=== PATIENT | male | born 1955 ===

== ENCOUNTER → 2018-04-25 19:02 | Outpatient (REF) | payer SELFPAY ==
[2018-04-25 19:56] LABS: Prothrombin Time 35.4 SECONDS (10.1-12.7)
== END ==
LOC: LAB 19:02
PROVIDERS: Visit Provider Family Medicine
DX: I48.91 Unspecified atrial fibrillation (principal)
CPT/HCPCS: 36415; 85610

== ENCOUNTER → 2018-05-16 13:24 | Outpatient (REF) | payer SELFPAY ==
[2018-05-16 13:46] LABS: INR 1.7 (0.9-1.3)
== END ==
LOC: LAB 13:24
PROVIDERS: Visit Provider Family Medicine
DX: I48.91 Unspecified atrial fibrillation (principal)
CPT/HCPCS: 36415; 85610

== ENCOUNTER → 2018-07-11 14:08 | Outpatient (REF) | payer SELFPAY ==
[2018-07-11 14:30] LABS: Prothrombin Time 47.6 SECONDS (10.1-12.7)
== END ==
LOC: LAB 14:08
PROVIDERS: Visit Provider Family Medicine
DX: I48.91 Unspecified atrial fibrillation (principal)
CPT/HCPCS: 36415; 85610

== ENCOUNTER → 2018-08-27 13:45 | Outpatient (REF) | payer SELFPAY ==
[2018-08-27 14:16] LABS: INR 1.6 (0.9-1.3); Prothrombin Time 18.5 SECONDS (10.1-12.7)
== END ==
LOC: LAB 13:45
PROVIDERS: Visit Provider Family Medicine
DX: I48.91 Unspecified atrial fibrillation (principal)
CPT/HCPCS: 36415; 85610

== ENCOUNTER → 2018-10-01 13:14 | Outpatient (ROUT) | payer MEDICARE, SELFPAY ==
[2018-10-01 14:11] LABS: INR 1.9 (0.9-1.3); Prothrombin Time 22.3 SECONDS (10.1-12.7)
[2018-10-01 14:21] LABS: Alanine Aminotransferase 43 IU/L (21-72); Albumin 4.5 g/dL (3.5-5.0); Albumin Globulin Ratio 1.6 (1.0-2.8); Alkaline Phosphatase 85 U/L (38-126); Aspartate Aminotransferase 37 IU/L (17-59); BUN Creatinine Ratio 17.1 (6-22); Bilirubin Total 1.1 mg/dL (0.2-1.3); Blood Urea Nitrogen 12 mg/dL (9-20); Calcium 9.4 mg/dL (8.4-10.2); Carbon Dioxide 30 mmol/L (22-32); Chloride 100 mmol/L (98-107); Cholesterol 192 mg/dL (140-199); Estimated Glomerular Filt Rate > 60.0 mL/min (>60); Globulin 2.8 g/dL (1.7-4.1); Glucose 92 mg/dL (80-110); HDL Cholesterol 31 mg/dL (40-60); HEMOLYSIS < 15 (0-50); LDL Cholesterol Calculated 113 mg/dL (<100); Potassium 4.7 mmol/L (3.4-5.1); Sodium 139 mmol/L (137-145); Total Protein 7.3 g/dL (6.3-8.2); Triglycerides 239 mg/dL (35-150)
[2018-10-01 14:48] LABS: Prostate Specific Antigen 0.134 ng/mL (0.10-4.00)
== END ==
PROVIDERS: Visit Provider Family Medicine
DX: I48.91 Unspecified atrial fibrillation (principal)
CPT/HCPCS: 36415; 80053; 80061; 84153; 85610